=== PATIENT | male | born 1960 | race Caucasian/White ===

== ENCOUNTER 2016-12-01 20:24 | Emergency (ER) | payer OTHER ==
[~2016-12-01] VITALS: Ht 167.6 cm; Wt 81.5 kg
[2016-12-01 20:31] VITALS: Ht 167.6 cm; Wt 81.5 kg
[2016-12-01] MEDS ORDERED: LIDOCAINE 1% (MDV) 20 ML INJ SC ONE (22:00)
[2016-12-01] MEDS ORDERED: CEPH-443 PO (22:13)
[2016-12-01] MEDS ORDERED: SULF1TAB31 PO (22:13)
--- NOTE | 2016-12-02 03:07 | ERD ---
ER Documentation Chief Complaint Date/Time DATE: 12/02/16 TIME: 03:04 Chief Complaint Abscess HPI 54-year-old male comes in with painful abscess for 2 weeks, he is has had this for almost a year now. He states is slightly draining, bleeding from the area. He denies any trauma, fevers or chills. ROS All systems reviewed and are negative except as per history of present illness. Medications Home Meds Active Scripts Sulfamethoxazole/Trimethoprim* (Bactrim Ds* Tablet) 1 Each Tablet, 1 TAB PO BID , #14 TAB Prov:HARJEET RICHTER PA-C 12/01/16 Cephalexin* (Keflex*) 500 Mg Capsule, 500 MG PO QID for 7 Days, CAP Prov:HARJEET RICHTER PA-C 12/01/16 Allergies Allergies: Coded Allergies: No Known Allergy (Unverified , 12/01/16) PMhx/Soc Medical and Surgical Hx: pt denies Medical Hx, pt denies Surgical Hx Hx Alcohol Use: No Hx Substance Use: No Hx Tobacco Use: No Smoking Status: Current every day smoker Physical Exam Vitals Vital Signs Date Time Temp Pulse Resp B/P Pulse Ox O2 Delivery O2 Flow Rate FiO2 12/01/16 20:31 99.6 97 18 160/88 97 Physical Exam General: Well-developed, well-nourished. The patient appears in no acute distress. HEENT: Head is normocephalic, atraumatic. No scleral icterus. Neck: Supple. Nontender. Lungs: Clear to auscultation. Normal air movement. Heart: Regular rate and rhythm. S1 and S2 are normal. No murmurs, gallops, or rubs. Abdomen: Nondistended. Extremities: No clubbing or cyanosis. Moving extremities x 4. No weakness. Neurologic: Alert and oriented 3. No focal deficits. Normal speech and gait. Skin: 5 cm area of fluctuance in the mid back on the midline. There is erythema , drainage.. Results 24 hrs Current Medications Medications (Trade) Dose Ordered Sig/Carlos Route PRN Reason Start Time Stop Time Status Last Admin Dose Admin Lidocaine (Xylocaine 1% (Mdv) 20 ml) 20 ml ONCE ONCE SC 12/01/16 22:00 12/01/16 22:01 DC Procedures/MDM Abscess Incision and Drainage with irrigation by me: Patient was verbally consented Location: Mid back Anesthesia: Local 1% Lidocaine Technique: 1 cm incision was made, irrigated. Disrupted loculations w/ instrumentation, copious amount of purulent drainage was able to be removed. Packing: yes Complications: Neurovascularly intact post procedure Patient's skin symptoms have stabilized while they have been evaluated in the department and are appropriate for outpatient care and work up. Exam and w/u not consistent w/ sepsis, deep space infection, or foreign body. Medical decision makin-year-old male comes in with an abscess to his back that he has had for year now, recently got infected starting 2 weeks ago with symptoms of pain, redness as well as drainage. Patient had an incision and drainage where I was able to remove a large amount of purulent material. He will be asked to start antibiotics, packing was placed due to the large area. He is to recheck the wound in 2 days. Patient's blood pressure was elevated (>120/80) but appears stable without evidence of hypertension emergency or urgency. The patient was counseled about the risks of hypertension and urged to pursue outpatient monitoring and therapy within a week with their primary care physician. Departure Diagnosis: Primary Impression: Abscess Additional Impression: Encounter for incision and drainage procedure Condition: Good Patient Instructions: Abscess, Incision And Drainage HARJEET RICHTER PA-C Dec 02, 2016 03:07
== END 2016-12-01 22:37 | disposition home or self-care (01) ==
LOC: FTE 20:24
DX: L02.212 Cutaneous abscess of back [any part, except buttock and flank] (principal); F17.210 Nicotine dependence, cigarettes, uncomplicated

== ENCOUNTER 2016-12-03 15:57 | Emergency (ER) | payer OTHER ==
[~2016-12-03] VITALS: Wt 84.1 kg
[~2016-12-03 15:57] MED LIST: CEPH-443 PO; SULF1TAB31 PO
[2016-12-03] MEDS ORDERED: IBUP800T25 PO (17:04)
--- NOTE | 2016-12-03 17:11 | ERD ---
ER Documentation Chief Complaint Date/Time DATE: 12/03/16 TIME: 17:05 Chief Complaint recheck I and D HPI This 55-year-old male comes in for recheck of his abscess. He still has some pain around the site but has left the dressing on for the 2 days since his recheck. The pain is diminished and he has no fevers or chills. ROS All systems reviewed and are negative except as per history of present illness. Medications Home Meds Active Scripts Ibuprofen* (Ibuprofen*) 800 Mg Tab, 800 MG PO Q6H Y for PAIN, #20 TAB Prov:CROW COHN DO 12/03/16 Sulfamethoxazole/Trimethoprim* (Bactrim Ds* Tablet) 1 Each Tablet, 1 TAB PO BID , #14 TAB Prov:HARJEET RICHTER PA-C 12/01/16 Cephalexin* (Keflex*) 500 Mg Capsule, 500 MG PO QID for 7 Days, CAP Prov:HARJEET RICHTER PA-C 12/01/16 Allergies Allergies: Coded Allergies: No Known Allergy (Unverified , 12/01/16) PMhx/Soc Medical and Surgical Hx: pt denies Medical Hx, pt denies Surgical Hx Hx Alcohol Use: No Hx Substance Use: No Hx Tobacco Use: No Smoking Status: Never smoker Physical Exam Vitals Vital Signs Date Time Temp Pulse Resp B/P Pulse Ox O2 Delivery O2 Flow Rate FiO2 12/03/16 16:04 98.8 70 20 147/78 98 Physical Exam Const: [] No distress Head: Atraumatic Back: No midline or flank tenderness, 4 x 4 cm healing abscess, mild purulent drainage with packing removal Ext: No cyanosis, or edema Neur: Awake and alert Procedures/MDM Abscess improving from prior exam. No systemic symptoms. Packing removed. Patient is to continue Bactrim and Keflex. Also requests 100 mg ibuprofen because he likes them. Prescribed him 800 mg ibuprofen primary care follow-up in 2-3 days and strict return precautions to the ER Departure Diagnosis: Primary Impression: Abscess re-check Condition: Stable Patient Instructions: Abscess, Packing Removal Referrals: [facility] YOU HAVE RECEIVED A MEDICAL SCREENING EXAM AND THE RESULTS INDICATE THAT YOU DO NOT HAVE A CONDITION THAT REQUIRES URGENT TREATMENT IN THE EMERGENCY DEPARTMENT. FURTHER EVALUATION AND TREATMENT OF YOUR CONDITION CAN WAIT UNTIL YOU ARE SEEN IN YOUR DOCTORS OFFICE WITHIN THE NEXT 1-2 DAYS. IT IS YOUR RESPONSIBILITY TO MAKE AN APPOINTMENT FOR FOLOW-UP CARE. IF YOU HAVE A PRIMARY DOCTOR --you should call your primary doctor and schedule an appointment IF YOU DO NOT HAVE A PRIMARY DOCTOR YOU CAN CALL OUR PHYSICIAN REFERRAL HOTLINE AT IF YOU CAN NOT AFFORD TO SEE A PHYSICIAN YOU CAN CHOSE FROM THE FOLLOWING [facility] [address] [facility] [address] [facility] [address] [facility] [address] [facility] [address] [facility] [address] [facility] [address] Additional Instructions: Llame al doctor MAANA y diane tony JAY PARA DENTRO DE 2-3 SALGADO.Dgale a la secretaria que nosotros le instruimos hacer esta jay.Avise o llame si argueta condicin se empeora antes de la jay. Regresa aqui si peor o no mejor. CROW COHN DO Dec 03, 2016 17:10
== END 2016-12-03 17:45 | disposition home or self-care (01) ==
LOC: FTE 15:57
DX: G89.18 Other acute postprocedural pain (principal)
CPT/HCPCS: 99283

== ENCOUNTER 2017-04-18 15:04 | Emergency (ER) | END 2017-04-18 19:15 | disposition home or self-care (01) ==